=== PATIENT | female | born 1990 | race Caucasian/White ===

== ENCOUNTER 2016-10-29 16:20 | Emergency (ER) | payer OTHER, MEDICAID ==
[~2016-10-29] VITALS: Ht 160 cm; Wt 59.0 kg
[~2016-10-29 16:20] MED LIST: CITA10TA17 GT; MULT-24 PO
[2016-10-29 17:01] LABS: BASOPHILS % (AUTO) 0.2 % (0.0-2.0); EOSINOPHILS # (AUTO) 0.1 K/uL (0.0-0.7); EOSINOPHILS % (AUTO) 1.6 % (0.0-7.0); HEMATOCRIT 46.6 % (37-47); HEMOGLOBIN 15.2 G/DL (12.0-16.0); LYMPHOCYTES # (AUTO) 1.3 K/UL (0.8-4.8); LYMPHOCYTES % (AUTO) 14.6 % (20.5-51.5); MEAN CORPUSCULAR HGB CONC 33 g/dL (32.0-37.0); MEAN CORPUSCULAR VOLUME 92.4 FL (81.0-99.0); MONOCYTES # (AUTO) 0.5 K/UL (0.1-1.30); MONOCYTES % (AUTO) 5.6 % (0.0-11.0); NEUTROPHILS # (AUTO) 7.1 K/UL (1.8-8.9); PLATELET COUNT (AUTO) 176 K/UL (150-450); RED BLOOD CELL COUNT(AUTO) 5.04 MIL/UL (4.2-5.4)
[2016-10-29 17:09] LABS: CREATININE 0.9 mg/dL (0.6-1.3)
[2016-10-29 17:15] LABS: BILIRUBIN,DIRECT 0.1 mg/dL (0.0-0.2); BILIRUBIN,TOTAL 0.3 mg/dL (0.2-1.0)
--- NOTE | 2016-10-29 17:45 | NUR ---
PATIENT WAS SEEN BY MD FOR C/O FEVER, SORE THROAT, DRUG WITHDRAWAL. PLACED ON A MONITOR, LABS OBTAINED, EKG DONE. SHE IS AWAKE, ALERT, ORIENTED X4.
[2016-10-29] MEDS ORDERED: LEVOFLOXACIN 750 MG TABLET PO ONE (18:15)
[2016-10-29] MEDS ORDERED: LEVOFLOXACIN 750 MG TABLET ONE (18:27)
--- NOTE | 2016-10-29 18:27 | NUR ---
IV DC'D, CATHETER TIP INTACT, PRESSURE APPLIED, DRESSING APPLIED. DC, RX AND FOLLOW UP INSTRUCTIONS GIVEN AND EXPLAINED TO PATIENT WHO STATES SHE UNDERSTANDS ALL INSTRUCTIONS.
[2016-10-29 18:29] VITALS: BP 129/74
== END 2016-10-29 18:31 | disposition home or self-care (01) ==
LOC: ER 16:20
DX: J18.9 Pneumonia, unspecified organism (principal); F15.10 Other stimulant abuse, uncomplicated; F11.10 Opioid abuse, uncomplicated
CPT/HCPCS: 36415; 71010; 84703; 85025; 87040; A4663